=== PATIENT | male | born 1960 | race Hispanic/Latino ===

== ENCOUNTER 2017-11-16 09:53 | Emergency (ER) | payer MEDICARE ==
[2017-11-16 10:38] VITALS: RESP 20; TEMP 99.1; O2SAT 95
[2017-11-16 10:39] VITALS: BP 124/70; PULSE 87
--- NOTE | 2017-11-16 10:48 | ED PDOC ---
HPI: Back Time Seen by Provider: 11/16/17 10:03 Chief Complaint (Nursing): Back Pain Chief Complaint (Provider): Back Pain History Per: Patient History/Exam Limitations: no limitations Onset/Duration Of Symptoms: Mins Current Symptoms Are (Timing): Still Present Additional Complaint(s): 56 year old male with a past medical history of chronic back pain brought to the ED via [facility] after doing physical therapy for his back in a public park prior to arrival. Police told him that since he was doing physical therapy in the streets, he should come here to be evaluated. Patient states he had done physical therapy in a facility/office in the past. However, insurance had stopped paying for it thus leading him to do his own physical therapy in the public park. Police state that they thought he needed physical therapy and wanted him to be evaluated for his back pain. At this time, patient states he does not want anything. Patient is compliant with all medications such as Xanax and Percocet of which he took all earlier today as prescribed. Patient reports pain is controlled back to his normal chronic pain level. Denies any other complaints at this time. PMD: None Provided Past Medical History Reviewed: Historical Data, Nursing Documentation, Vital Signs Vital Signs: Last Vital Signs Temp 99.1 F 11/16/17 10:05 Pulse 87 11/16/17 10:38 Resp 20 11/16/17 10:38 BP 124/70 11/16/17 10:38 Pulse Ox 95 11/16/17 10:38 - Medical History PMH: Back Problems (chronic) - Surgical History Surgical History: No Surg Hx - Family History Family History: States: Unknown Family Hx - Allergies Allergies/Adverse Reactions: Allergies Allergy/AdvReac Type Severity Reaction Status Date / Time No Known Allergies Allergy Verified 11/16/17 10:01 Review of Systems ROS Statement: Except As Marked, All Systems Reviewed And Found Negative Musculoskeletal: Positive for: Back Pain (chronic) Physical Exam - Reviewed Nursing Documentation Reviewed: Yes Vital Signs Reviewed: Yes - Physical Exam Appears: Positive for: Non-toxic, No Acute Distress (comfortable) Head Exam: Positive for: ATRAUMATIC Skin: Positive for: Normal Color Eye Exam: Positive for: EOMI Cardiovascular/Chest: Positive for: Regular Rate, Rhythm Respiratory: Negative for: Respiratory Distress Extremity: Positive for: Normal ROM Neurologic/Psych: Positive for: Alert, Oriented, Gait (steady) - ECG O2 Sat by Pulse Oximetry: 95 (RA) Pulse Ox Interpretation: Normal Medical Decision Making Medical Decision Making: Time: 1035 Impression: Chronic Back Pain Plan: -- There are no indications for further treatment at this time or management in the ER -- Patient is stable for discharge. Scribe Attestation: Documented by Lisa Bowie, acting as a scribe for Dr. Laurent Mayer MD. Provider Scribe Attestation: All medical record entries made by the Scribe were at my direction and personally dictated by me. I have reviewed the chart and agree that the record accurately reflects my personal performance of the history, physical exam, medical decision making, and the department course for this patient. I have also personally directed, reviewed, and agree with the discharge instructions and disposition. Disposition - Clinical Impression Clinical Impression: Chronic back pain - Patient ED Disposition Is Patient to be Admitted: No Doctor Will See Patient In The: Office Counseled Patient/Family Regarding: Studies Performed, Diagnosis, Need For Followup - Disposition Disposition: Routine/Home Disposition Time: 10:30 Condition: GOOD Additional Instructions: Follow up with your Pain management doctor. Instructions: Chronic Pain (DC)
== END 2017-11-16 10:35 | disposition home or self-care (01) ==
LOC: EDBD 09:53 → H.ER 09:53
DX: M54.9 Dorsalgia, unspecified (principal); G89.29 Other chronic pain